=== PATIENT | male | born 1965 | race Two or more races ===

== ENCOUNTER 2018-05-15 07:00 | Day surgery (SDC) | payer OTHER ==
[~2018-05-15] VITALS: Ht 180.3 cm; Wt 77.1 kg
[2018-05-15] VITALS (8 sets, daily range): BP systolic 109–155; BP diastolic 56–76
--- NOTE | 2018-05-15 06:36 | Anethesia Preoperative Eval ---
Anesthesia Pre-op PMH/ROS General Date of Evaluation: May 15, 2018 Time of Evaluation: 07:45 Anesthesiologist: earnest ASA Score: ASA 3 Mallampati Score Class I : Soft palate, uvula, fauces, pillars visible Class II: Soft palate, uvula, fauces visible Class III: Soft palate, base of uvula visible Class IV: Only hard plate visible Mallampati Classification: Class II Surgeon: jarred Diagnosis: colon screening Surgical Procedure: colonoscopy Anesthesia History: none Social History: smoking - nonsmoker Family History: no anesthesia problems Allergies: Coded Allergies: No Known Allergies (Unverified , 05/15/18) Medications: see eMAR Patient NPO?: Yes Past Medical History Cardiovascular: Reports: HTN, other - hypercholesterolemia Musculoskeletal/Integumentary: Reports: other - back pain PSxH Narrative: appendectomy Anesthesia Pre-op Phys. Exam Physician Exam Constitutional: NAD Neurologic: CN 2-12 intact Cardiovascular: RRR Respiratory: CTA Gastrointestinal: S/NT/ND Airway Exam Mallampati Score: Class II MO: limited Neck: flexible TMD: 2fb ROM: limited Anesthesia Pre-op A/P Risk Assessment & Plan Assessment: asa3 Plan: mac Status Change Before Surgery: No Pre-Antibiotics Drug: Azalia Samuels MD May 15, 2018 06:36
--- NOTE | 2018-05-15 07:40 | NUR ---
IV LR WAS STARTED BY MARK WESTOPS RN. NO S/S OF INFILTRATION.
[2018-05-15] MEDS ORDERED: ALLOPURINOL100 M1 ORAL (07:41)
[2018-05-15] MEDS ORDERED: ATORVASTATIN CA10 MG ORAL (07:41)
[2018-05-15] MEDS ORDERED: LR 1000ml ONE (07:45)
[2018-05-15] MEDS ORDERED: Propofol 200mg/20ml IV ONE ×2 (07:45→09:00)
[2018-05-15] MEDS ORDERED: Lidocaine 1% MPF 10mg/ml 5ml ONE (07:45)
--- NOTE | 2018-05-15 08:04 | Pre-Procedure Note/Attestation ---
Pre-Procedure Note/Attestation Complete Prior to Procedure Planned Procedure: not applicable Procedure Narrative: Colonoscopy, possible biopsy, polypectomy, hemostasis, submucosal injection Indications for Procedure Pre-Operative Diagnosis: cancer screening Attestation I attest that I discussed the nature of the procedure; its benefits; risks and complications; and alternatives (and the risks and benefits of such alternatives ), prior to the procedure, with the patient (or the patient's legal used equipment sales representative). I attest that, if there was a reasonable possibility of needing a blood transfusion, the patient (or the patient's legal used equipment sales representative) was given the [facility] standardized written summary, pursuant to the Montrell Oliver Blood Safety Act ([place] Health and Safety Code # 1645, as amended). I attest that I re-evaluated the patient just prior to the surgery and that there has been no change in the patient's H&P, except as documented below: Tona Stockton MD May 15, 2018 08:04
--- NOTE | 2018-05-15 08:55 | Endoscopy Procedure Note ---
Endoscopy Procedure Note General Procedures Performed: colonoscopy Operative Findings/Diagnosis: sigmoid polyp x 2 Specimen: none Pt Tolerated Procedure Well: Yes Estimated Blood Loss: minimal Anesthesia Anesthesiologist: Azalia Diggs MD Anesthesia: moderate sedation Medications Medication Given: see anesthesia record Inserted Devices Implant(s) used?: No Quality Quality of Bowel Preparation: Excellent Did scope reach the cecum?: Yes GI Core Measures 50 yrs or older w/o bx or poly: No 10yrs. F/U not recommended: No If not recommended, why?: Tona Stockton MD May 15, 2018 08:55
--- NOTE | 2018-05-15 13:08 | Immediate Post-Op Evaluation ---
Immediate Post-Op Evalulation Immediate Post-Op Evalulation Procedure: colonoscopy w/ bx Date of Evaluation: May 15, 2018 Time of Evaluation: 09:12 IV Fluids: 250ml lr Blood Products: none Estimated Blood Loss: negligible Blood Pressure Systolic: 119 Blood Pressure Diastolic: 83 Pulse Rate: 49 Respiratory Rate: 18 O2 Sat by Pulse Oximetry: 97 Temperature (Fahrenheit): 98.0 Pain Score (1-10): 0 Nausea: No Vomiting: No Complications none Patient Status: awake, reacts, patent Hydration Status: adequate Drug: Azalia Samuels MD May 15, 2018 13:08
--- NOTE | 2018-05-15 13:10 | 48 Hour Post Anesthesia Eval ---
Post Anesthesia Evaluation Procedure: colonoscopy w/ bx Date of Evaluation: May 15, 2018 Time of Evaluation: 09:14 Blood Pressure Systolic: 123 0: 68 Pulse Rate: 46 Respiratory Rate: 18 Temperature (Fahrenheit): 98.0 O2 Sat by Pulse Oximetry: 99 Airway: patent Nausea: No Vomiting: No Pain Intensity: 0 Hydration Status: adequate Cardiopulmonary Status: stable Mental Status/LOC: patient returned to baseline Post-Anesthesia Complications: none Follow-up care needed: N/A Azalia Amin MD May 15, 2018 13:10
[2018-05-15] MEDS ORDERED: fentaNYL 100 mcg/2 mL IV PRN (13:15)
[2018-05-15] MEDS ORDERED: Atropine Inj 1mg/10ml Syr IV PRN (13:15)
[2018-05-15] MEDS ORDERED: Midazolam 2mg/2ml Inj IVP PRN (13:15)
[2018-05-15] MEDS ORDERED: DiphenhydrAMINE 50mg/ml Inj IVP PRN (13:15)
--- NOTE | 2018-05-15 16:00 | Operative Note - Dictated ---
DATE OF OPERATION: 05/15/2018 PREPROCEDURE DIAGNOSIS: Cancer screening. POSTPROCEDURE DIAGNOSIS: Sigmoid polyp x2, moderate internal hemorrhoids. PROCEDURES: Colonoscopy with cold forceps biopsy. SURGEON: Tona Stockton M.D. ANESTHESIOLOGIST: Azalia Amin M.D. ANESTHESIA: Propofol sedation. INDICATION FOR PROCEDURE: The patient is a 53-year-old male, who came to my office requesting the first time colonoscopy. In light of the patient's age, it was determined at this time to proceed with the first time screening colonoscopy DESCRIPTION OF PROCEDURE: Upon consent of the patient, the patient was brought to the procedure room and placed in the left lateral decubitus position . Once adequate sedation had been established with propofol drip, digital rectal exam was performed, which showed some small internal hemorrhoids. An Olympus colonoscope was advanced through the anus and into the rectum. The descending colon, splenic flexure, transverse colon, hepatic flexure, and ascending colon were visualized. The cecum was easily reached, and the ileocecal valve and appendiceal orifice were identified. The patient's prep was noted to be good. The terminal ileum was intubated and was noted to be normal. The colonoscope was slowly withdrawn. There was noted to be two benign appearing polyps in the sigmoid colon, which were removed with the cold forceps biopsy and send off the field as specimens. The postpolypectomy sites were noted to have no active bleeding. Upon reaching the rectum, the colonoscope was retroflexed and there was noted to be moderate internal hemorrhoids. The scope was straightened, air was evacuated from the rectum, and the colonoscope was removed. The patient was awakened from anesthesia and brought to the postanesthesia recovery in stable condition. There were no complications. IMPRESSION: Sigmoid polyps x2, mild internal hemorrhoids. PLAN: Repeat colonoscopy in 5 years, continue high-fiber diet, and yearly followup. Tona Stockton M.D. DR: DANIELLE JOB#: [id number] CC: Tona Stockton M.D.; Fax#: [phone] Xavier Keene M.D.
== END 2018-05-15 10:25 | disposition home or self-care (01) ==
LOC: GAS 07:00
DX: Z12.11 Encounter for screening for malignant neoplasm of colon (principal); K63.5 Polyp of colon; K64.8 Other hemorrhoids; I10 Essential (primary) hypertension; E78.00 Pure hypercholesterolemia, unspecified; M54.9 Dorsalgia, unspecified; Z90.49 Acquired absence of other specified parts of digestive tract
CPT/HCPCS: 94003; 94150